=== PATIENT | female | born 1990 | race Caucasian/White ===

== ENCOUNTER 2017-06-24 11:47 | Emergency (ER) | payer OTHER ==
[~2017-06-24] VITALS: Ht 167.6 cm; Wt 62.8 kg
[~2017-06-24 11:47] MED LIST: ATARAX,VISTARIL25 MG PO; ATIVAN0.5 MG PO
[2017-06-24 12:41] LABS: HEMATOCRIT 41.7 % (36.0-46.0); MCH 32.3 PG (29.0-34.0); MCHC 35.3 G/DL (30.0-36.0); MCV 91.6 FL (83-99); MEAN PLAT.VOLUME 11.3 uM^3 (9.5-12.4); PLATELET COUNT 107 K/uL (156-360); RBC DIS.WIDTH-CV 11.7 % (11.8-14.6); RBC DIS.WIDTH-SD 39.4 % (39-53); RED BLOOD COUNT 4.55 M/uL (3.80-5.20); WHITE BLOOD COUNT 4.9 K/uL (4.1-10.2)
[2017-06-24 13:08] LABS: ANION GAP 8 MEQ/L (2-14); CHLORIDE 102 MEQ/L (99-109); POTASSIUM 3.9 MEQ/L (3.7-5.4); SAMPLE HEMOLYSIS CHECK 0; SAMPLE ICTERIC CHECK 0; SAMPLE LIPEMIA CHECK 0; SODIUM 138 MEQ/L (136-147)
[2017-06-24 13:13] LABS: GFR ESTIMATE (CALCULATED) > 59 mL/min/; GLUCOSE 95 mg/dL (70-99); UREA NITROGEN (BUN) 14 mg/dL (9-23)
[2017-06-24 14:09] LABS: ADD MIUA? YES; BILIRUBIN SMALL; BLOOD NEGATIVE; COLOR AMBER ((YELLOW)); GLUCOSE (STRIP) NEGATIVE; KETONES 5; LEUKOCYTES TRACE; NITRITE NEGATIVE; PROTEIN (STRIP) 100; SPECIFIC GRAVITY 1.036 (1.000-1.030)
[2017-06-24] MEDS ORDERED: TRAMADOL HCL50 MG PO (14:25)
[2017-06-24] MEDS ORDERED: MOTRIN600 MG PO (14:25)
[2017-06-24] MEDS ORDERED: VALTREX1000 MG PO (14:25)
[2017-06-24 14:26] LABS: BACTERIA 2+ /HPF; EPITHELIAL CELLS 1+ /HPF; MUCUS 2+ /LPF; RED BLOOD CELLS 0-5 /HPF (0-5); UCUL ADDED? YES
[2017-06-24 14:35] VITALS: BP 106/66
[2017-06-24 15:36] LABS: QUANTITATIVE HCG < 4.0 MIU/ML
[2017-06-26 12:02] LABS: NEISSERIA GONORRHOEAE NEGATIVE
[2017-06-26 12:04] LABS: CHLAMYDIA TRACHOMATIS NEGATIVE
== END 2017-06-24 14:36 | disposition home or self-care (01) ==
LOC: EME 11:47
PROVIDERS: Physician Assistant
DX: A60.9 Anogenital herpesviral infection, unspecified (principal); R19.7 Diarrhea, unspecified; F31.9 Bipolar disorder, unspecified; F17.200 Nicotine dependence, unspecified, uncomplicated
CPT/HCPCS: 80048; 81003; 84702; 85027; 87077; 87086; 87186; 87210; 87491; 87591; 99281; 99285